=== PATIENT | male | born 1975 | race African-American/Black ===

== ENCOUNTER 2017-01-01 01:40 | Emergency (ER) | payer SELFPAY ==
[~2017-01-01] VITALS: Ht 188 cm; Wt 77.1 kg
[2017-01-01 01:44] VITALS: BP 161/95
[2017-01-01] MEDS: cloNIDine 0.1 MG TAB PO ONE (02:05)
[2017-01-01 02:10] VITALS: BP 174/91
== END 2017-01-01 02:10 ==
LOC: MED 01:40
DX: Z02.89 Encounter for other administrative examinations (principal); I10 Essential (primary) hypertension